=== PATIENT | male | born 1955 | race Caucasian/White ===

== ENCOUNTER 2021-05-20 19:10 | Emergency (ER) | payer OTHER ==
[~2021-05-20] VITALS: Ht 177.8 cm; Wt 113.4 kg
[~2021-05-20 19:10] MED LIST: ALBU90OI INH; ALEN70 PO; Albuterol2.5 MG/0.5 INH; Aspirin EC81 MG; Aspirin EC81 MG PO; CALCIUM 500 +1 EAC3 PO; CEPH500 PO; Crestor40 MG PO; FURO40; GABA800 PO; Glucose4 GM PO; HYDACE10B PO; HYDACE5 PO; HYDGUAL120 PO; Hydrochlorothia25 MG PO; IBUP600 PO; INSULANPEN SC; LEVEMIR FL100 UNIT/1 SC; LISI20 PO; METF500C PO; METO25; METO25ER PO; OXYACE5T PO; POTCHL10ER; PRED20 PO; PROM25 PO; ROSUVASTATIN CA40 MG PO; SKIN TREATMENT225 GM TP; SULTRIDS PO; TAMS.4ER PO; TRULICITY1.5 MG/0.5; Ventolin/Prove6.7 GM INH; XARELTO20 MG PO
[2021-05-20 19:44] LABS: BASOPHILS ABSOLUTE AUTO 0.09 K/mm3 (0.00-0.23); BASOPHILS PERCENT AUTO 1 % (0-2); EOSINOPHILS PERCENT AUTO 2 % (0-6); Hemoglobin 17.2 g/dL (13.5-17.5); IMMATURE GRAN ABSOLUTE AUTO 0.04 K/mm3 (0.00-0.10); IMMATURE GRAN PERCENT AUTO 0 % (0-1); LYMPHOCYTES ABSOLUTE AUTO 2.29 K/mm3 (0.84-5.20); LYMPHOCYTES PERCENT AUTO 25 % (21-46); MONOCYTES ABSOLUTE AUTO 0.97 K/mm3 (0.16-1.47); MONOCYTES PERCENT AUTO 11 % (4-13); Mean Corpuscular HGB 31.1 pg (26.0-34.0); Mean Corpuscular HGB Conc 32.5 g/dL (31.5-36.5); Mean Corpuscular Volume 96 fL (80-100); Mean Platelet Volume 10.3 fL (9.1-12.4); NEUTROPHILS ABSOLUTE AUTO 5.62 K/mm3 (1.96-9.15); NEUTROPHILS PERCENT AUTO 61 % (41-73); Platelet Count 236 K/mm3 (150-400); RDW Coefficient Variation 14.3 % (11.7-14.2); RDW Standard Deviation 50.8 fL (35.1-46.3); Red Blood Cell Count 5.53 M/mm3 (4.30-5.90); White Blood Cell Count 9.21 K/mm3 (4.00-11.30)
[2021-05-20 20:09] LABS: Alanine Aminotransfer (ALT/SGP 27 U/L (12-78); Albumin, Blood 3.3 g/dL (3.4-5.0); Albumin/Globulin Ratio 0.8 (0.8-1.8); Alk Phos 59 U/L (50-136); Anion Gap 3 mmol/L (6-16); Aspartate Aminotrans (AST/SGOT 20 U/L (12-37); Bilirubin, Total 0.2 mg/dL (0.1-1.0); Blood Urea Nitrogen 10 mg/dL (8-24); Bun/Creatinine Ratio 15.6 (12.0-20.0); CO2, Blood 31 mmol/L (21-32); Calcium, Blood 9.2 mg/dL (8.5-10.1); Chloride, Blood 108 mmol/L (98-108); Creatinine, Blood 0.64 mg/dL (0.60-1.20); Globulin, Blood 4.1 g/dL (2.2-4.0); Glomerular Filtration Rate >60 (60-); Glucose, Blood 108 mg/dL (70-99); Potassium, Blood 4.6 mmol/L (3.5-5.5); Sodium, Blood 142 mmol/L (136-145); Total Protein, Blood 7.4 g/dL (6.4-8.2)
[2021-05-20] MEDS ORDERED: Prednisone20 MG PO (20:49)
[2021-05-20] MEDS ORDERED: DOXY100 PO (20:49)
== END 2021-05-20 21:08 | disposition home or self-care (01) ==
LOC: ER 19:10
PROVIDERS: Emergency Medicine
DX: J44.9 Chronic obstructive pulmonary disease, unspecified (principal); I10 Essential (primary) hypertension; E11.9 Type 2 diabetes mellitus without complications; F17.200 Nicotine dependence, unspecified, uncomplicated; Z79.899 Other long term (current) drug therapy
CPT/HCPCS: 36415; 71045; 80053; 83880; 84484; 85025; 93005; 93010; 99284-25; A9270; J7512

== ENCOUNTER 2023-09-13 13:03 | Inpatient (IN) | payer OTHER ==
[~2023-09-13] VITALS: Ht 182.9 cm; Wt 90.7 kg
[~2023-09-13 13:03] MED LIST changes: +CELE200 PO; +DOCU100 PO; +DOXY100 PO; +METO50ER PO; +ONDA4 PO; +OXYC5 PO; +POTA10T PO; +Prednisone20 MG PO; +ROSUVASTATIN CA10 MG PO; +SYNJARDY XR 121 EAC1 PO; +TAMS.4ER; +THERA-D2000 UNIT PO; +TORSE20 PO; +TRAM50 PO
[2023-09-13] MEDS ORDERED: OLANZapine 5 MG Tab PO ONE (15:15)
[2023-09-13] MEDS ORDERED: HYDROcodone 10-APAP 325 TAB PO PRN (16:00)
[2023-09-13] MEDS ORDERED: Haloperidol Lactate Inj. 5 MG/ML Injection IM PRN (16:00)
[2023-09-13] MEDS ORDERED: Insulin Human Lispro 100 Units/ML 3ML Syringe SC SCH (16:30)
[2023-09-13] MEDS ORDERED: Gabapentin 400 MG Cap PO SCH (18:00)
[2023-09-13 18:03] LABS: BASOPHILS ABSOLUTE AUTO 0.08 K/mm3 (0.00-0.23); BASOPHILS PERCENT AUTO 1 % (0-2); EOSINOPHILS ABSOLUTE AUTO 0.18 K/mm3 (0.00-0.68); EOSINOPHILS PERCENT AUTO 2 % (0-6); Hematocrit 51.9 % (37.0-53.0); Hemoglobin 17.2 g/dL (13.5-17.5); IMMATURE GRAN ABSOLUTE AUTO 0.01 K/mm3 (0.00-0.10); IMMATURE GRAN PERCENT AUTO 0 % (0-1); LYMPHOCYTES PERCENT AUTO 30 % (21-46); MONOCYTES ABSOLUTE AUTO 0.93 K/mm3 (0.16-1.47); MONOCYTES PERCENT AUTO 10 % (4-13); Mean Corpuscular HGB 31.3 pg (26.0-34.0); Mean Corpuscular HGB Conc 33.1 g/dL (31.5-36.5); Mean Corpuscular Volume 94 fL (80-100); Mean Platelet Volume 9.6 fL (9.1-12.4); NEUTROPHILS ABSOLUTE AUTO 5.38 K/mm3 (1.96-9.15); NEUTROPHILS PERCENT AUTO 57 % (41-73); Platelet Count 293 K/mm3 (150-400); RDW Coefficient Variation 12.5 % (11.7-14.2); RDW Standard Deviation 43.9 fL (35.1-46.3); White Blood Cell Count 9.38 K/mm3 (4.00-11.30)
[2023-09-13] MEDS ORDERED: QUEtiapine Fumarate 25 MG Tab PO SCH (21:00)
[2023-09-13] MEDS ORDERED: TraZODone HCl 100 MG Tab PO SCH (21:00)
[2023-09-13] MEDS ORDERED: Insulin Glargine-Yfgn 100 Unit/mL 3 ML SYR SC SCH (21:00)
[2023-09-13 21:30] VITALS: BP 125/56
--- NOTE | 2023-09-13 23:00 | NUR ---
PRIMARY NURSE [facility]-THIS RN TO ASSUME PATIENT CARE.
--- NOTE | 2023-09-13 23:08 | NUR ---
PATIENT ARRIVED AT 1999 VIA W/C FROM ER.ALERT, ANGRY AND LISTENING TO US BUT SHOUTING LOUD, HAS A CANE AND DID NOT TRY TO STRICK US. SITTER WITH HIM. HE DID NOT WANT TO GET IN BED, WE GOT A RECLINER AND IT IS NOTED HIS RIGHT TOE NAIL IS BLOODY. WILL NOT LET ME PUT A DRESSING ON. ASKING FOR HIS MED AND BELITTLING THE HOSPITAL. FOR NOT HAVING A COUNSELOR IN THE ER TONIGHT. HE IS ON 2 MD HOLD. HIS CIGARETTES, HYDRAULIC BILLET MAKER, WALLET AND MEDS ALL LOCKED IN PATIENT BIN. HE LET US DO HIS VITALS AND CBG. HE SAID HE WANTS HIS MEDS. LET HIM KNOW WE WOULD NOT GIVE HIS SCHEDULED INSULIN SINCE HE IS NOT EATING. ROOM SET UP FOR SI PATIENT, SHORT CALL LIGHT CORD IN PLACE. HE DID LET US OUT A DRESSING ON HIS RIGHT TOE. SITTER JUST OUTSIDE ROOM ABLE TO SEE HIS FACE AND HANDS.
--- NOTE | 2023-09-14 05:01 | NUR ---
SHIFT SUMMARY. PATIENT IS A&O X4 WITH CONFUSION. PATIENT AMBULATING INDEPENDENTLY IN BEDROOM WITH CANE . PATIENT HAS 1:1 SITTER R/T HIGH SI RISK. PATIENTS ROOM HAS PAPER LINERS IN WASTE BINS, SHORT CALL LIGHT, PATIENT IN VIEW OF SITTER. PATIENT HAS OWN CPAP-PATIENT WEARS AT NIGHT WHEN SLEEPING. PATIENT REFUSED PARTS OF HIS ASSESSMENT. PATIENT RESTING IN RECLINER WITH RESPIRATIONS EQUAL AND UNLABORED. PATIENT ABLE TO MAKE HIS NEEDS KNOWN. CALL LIGHT ACCESSABLE TO PATIENT. NO S/S OF DISTRESS NOTED. CARE IS ONGOING.
[2023-09-14 05:52] VITALS: BP 141/77
[2023-09-14 07:12] VITALS: BP 106/66
[2023-09-14] MEDS ORDERED: DULoxetine HCL 60 MG Capsule DR PO SCH (09:00)
[2023-09-14] MEDS ORDERED: Enoxaparin 40 MG/0.4 ML SYR SC SCH (09:00)
[2023-09-14 09:05] LABS: Albumin, Blood 3.3 g/dL (3.4-5.0); Albumin/Globulin Ratio 0.9 (0.8-1.8); Bilirubin, Total 0.5 mg/dL (0.1-1.0); Bun/Creatinine Ratio 15.2 (12.0-20.0); Creatinine, Blood 0.66 mg/dL (0.60-1.20); Globulin, Blood 3.7 g/dL (2.2-4.0); Potassium, Blood 4.1 mmol/L (3.5-5.5)
[2023-09-14] MEDS ORDERED: Norco 10-325 T1 EACH PO (10:47)
[2023-09-14] MEDS ORDERED: TRAZ150T57 PO (10:48)
[2023-09-14] MEDS ORDERED: OLANZapine 10 MG Vial IM PRN (11:55)
[2023-09-14] MEDS ORDERED: QUEtiapine Fumarate 25 MG Tab PO PRN (11:55)
--- NOTE | 2023-09-14 13:30 | NUR ---
PT HAS HAD NO URINE OUTPUT THIS SHIFT. PT STATES HE DOES NOT HAVE THE URGE OR FEEL LIKE HE NEEDS TO URINATE. PT DECLINED TO GET UP AND ATTEMPT TO URINATE. PT VERBALLY AGREED TO ALLOW TO BE BLADDER SCANNED. BLADDER SCAN REVEALED ZERO MLS. PT EDUCATED ON IMPORTANCE OF DRINKING WATER AND STAYING HYDRATED. PT V/U. PT HAS WATER AT BEDSIDE.
[2023-09-14 15:11] VITALS: BP 105/66
[2023-09-14] MEDS ORDERED: BASAGLAR K100 UNIT/1 SC (16:57)
[2023-09-14] MEDS ORDERED: OMEP20ER PO (16:58)
[2023-09-14] MEDS ORDERED: OZEMPIC1 MG/0.72 SC (16:59)
[2023-09-14] MEDS ORDERED: TAMS.4ER PO (16:59)
[2023-09-14] MEDS ORDERED: MIRALAX17 GM PO (17:00)
[2023-09-14] MEDS ORDERED: ALBU90OI INH (17:00)
[2023-09-14] MEDS ORDERED: TIOT18 INH (17:01)
[2023-09-14] MEDS ORDERED: DULO30 PO (17:01)
[2023-09-14] MEDS ORDERED: NS 1,000 ML IV SCH (17:50)
--- NOTE | 2023-09-14 18:12 | NUR ---
SHIFT SUMMARY: PT IS A/O X 3, STANDBY ASSIST. PT WAS REFUSING TO EAT OR DRINK MEALS TODAY. PT REPORTED IT WAS HIS PLAN TO STARVE TO . PT HAD POOR ORAL INTAKE OF FLUIDS ALL DAY WITH VERY LITTLE URINE OUTPUT. PT DID NOT URINATE IN HAT SO WAS UNABLE TO MEASURE VOID BUT PLANT MANAGER REPORTED IT DARK YELLOW WHEN HE DID URINATE IN THE EVENING. ONCE PT SPOKE TO PSYCH RADIOTELEPHONE OPERATOR PT WAS MORE AGREEABLE TO EATING. PT DID REQUEST A DIABETIC DIET WITH TEXTURE MODIFICATION BECAUSE HE DOES NOT HAVE ANY TEETH. DIET CHANGED TO HIS PREFERENCES. [facility] LIST AND WAS UPDATED IN HOME MEDICATIONS. DR. BOYER NOTIFIED OF MEDICATIONS NOT ON MAR AND HE GAVE ORDERS FOR METOPROLOL AND XARELTO TO BE ADDED PER HOME DOSE. ALSO DISCUSSED CONCERNS OF S/S OF DEHYDRATION WITH DR. BOYER AND HE GAVE ORDER FOR NS AT 100 MLS PER HOUR. PT HAS NO IV ACCESS. DISCUSSED CONCERNS WITH PT AND HE AGREED TO ALLOW AN IV TO BE STARTED FOR IV FLUIDS TO BE GIVEN. ATTEMPTED TWO IV STARTS AND WAS UNSUCCESSFUL. WILL NOTIFY MEDICAL I D SALES OF CONCERNS.
[2023-09-14 20:30] VITALS: BP 116/68
[2023-09-14] MEDS ORDERED: Ketorolac Tromethamine 15mg Vial IV PRN (20:30)
[2023-09-14] MEDS ORDERED: Metoprolol Succinate 50 MG TABCR PO SCH (21:00)
[2023-09-14] MEDS ORDERED: QUEtiapine Fumarate 50 MG TAB PO SCH (21:00)
[2023-09-14] MEDS ORDERED: Docusate Sodium 100 MG Cap PO SCH (21:00)
[2023-09-14] MEDS ORDERED: Acetaminophen650 M1 PO (23:20)
[2023-09-14] MEDS ORDERED: ALEVE ARTHRITI100 GM TOP (23:21)
[2023-09-14] MEDS ORDERED: PHARBEDRYL50 M2 PO (23:22)
[2023-09-14] MEDS ORDERED: GLUCOSE PO (23:27)
[2023-09-14] MEDS ORDERED: MUPIROCIN2210 TOP (23:28)
[2023-09-14] MEDS ORDERED: NARCAN4 M1 (23:30)
[2023-09-14] MEDS ORDERED: TRIDERM28.4 GM TOP (23:33)
[2023-09-14] MEDS ORDERED: Chantix1 MG PO (23:34)
--- NOTE | 2023-09-15 00:10 | NUR ---
HOSPITALIST CONTACTED. PATIENT C/O INSOMNIA. PATIENT REQUEST FOR HIS HOME DOSE OF TRAZODONE. HOSPITALIST DR. FERNANDEZ CONTACTED AND NOTIFIED OF PATIENTS REQUEST. DR. FERNANDEZ ORDERED PATIENT TO START HOME DOSE OF TRAZODONE FROM [facility] REC.
[2023-09-15] MEDS ORDERED: TraZODone HCl 50 MG Tab PO SCH (00:25)
--- NOTE | 2023-09-15 01:15 | NUR ---
HOSPITALIST CONTACTED. DR. FERNANDEZ CONTACTED D/T PATIENT REQUESTING FOR TRAZODONE THAT HE TAKES AT HOME FOR INSOMNIA. DR. FERNANDEZ ORDERED FOR HOME DOSE TO BE STARTED NOW.
--- NOTE | 2023-09-15 04:29 | NUR ---
PATIENT ANXIOUS. THIS RN WENT INTO SEE PATIENT WITH MEDICATIONS FOR ANXIETY-PATIENT HITTING HEAD AND WANTING TO "STOP THE VOICES IN HIS HEAD THAT KEEP TALKING". PATIENT STATES "I DONT SLEEP FOR DAYS AT HOME BECAUSE OF THE VOICES". PATIENT TREATED WITH MEDICATION PER EMAR.
[2023-09-15 05:24] VITALS: BP 105/73
--- NOTE | 2023-09-15 05:29 | NUR ---
SHIFT SUMMARY. PATIENT IS A&OX3-4 WITH CONFUSION. PATIENT IS IRRITABLE AND LIABLE. PATIENT REPORTS THAT HE HEARS VOICES IN HIS HEAD THAT KEEP HIM UP AND WONT STOP TALKING-SEE PREVIOUS NOTE. PATIENT IS [place]. PATIENT UPSET ABOUT HOME MEDICATIONS-MED REC COMPLETED BY CHARGE NURSE QUINTON FROM [facility]-PATIENT STATES "I DONT WHAT MEDICATIONS I TAKE, THEY ARE ALL IN MY BOX AND I TAKE THEM". PATIENT DID NOT SLEEP WELL THIS SHIFT. PATIENT HAS 1:1 SITTER FOR HIGH RISK SI. PATIENT UPSET WITH SHORT CALL LIGHT CORD AND STATES "IM NOT GOING TO HURT MYSELF TO " THIS RN ASKED "DO YOU HAVE A PLAN?" PATIENT STATES "YES, TO STARVE". IV PLACED THIS SHIFT IN LEFT FA-PATIENT TOLERATED WELL. PATIENT PREFERS TO SLEEP IN THE RECLINER. PATIENT DENIED FOR FULL SKIN ASSESSMENT TO BE COMPLETED. PATIENT WALKED IN WHITESIDE THIS SHIFT WITH TOOL CRIB MANAGER-PATIENT UNSTEADY AT TIMES. CALL LIGHT IN REACH. CARE IS ONGOING.
[2023-09-15 06:07] LABS: Source, Urine Voided
[2023-09-15 06:11] LABS: Appearance, Urine Hazy (Clear); Bilirubin, Urine Neg (Neg); Blood, Urine 1+ (Neg); Color, Urine Yellow (P-Yellow); Glucose Qualitative, Urine Neg (Neg); Ketones, Urine 1+ (Neg); Leukocyte Esterase, Urine 3+ (Neg); Nitrite, Urine Neg (Neg); Protein, Urine 1+ (Neg); Specific Gravity, Urine 1.025 (1.003-1.022); Urobilinogen, Urine NORM (Normal)
[2023-09-15 06:18] LABS: Mucus Heavy (0-Heavy)
[2023-09-15 06:21] LABS: Bacteria Many /hpf; Red Blood Cells, Urine 0-2 /hpf (0-2); Squamous Epithelial Cells Many /hpf (Few)
[2023-09-15] MEDS ORDERED: Rivaroxaban 10 MG Tab PO SCH (09:00)
[2023-09-15 15:20] VITALS: BP 100/54
--- NOTE | 2023-09-15 18:38 | NUR ---
SHIFT SUMMARY PATIENT ALERT AND INTERACTIVE. PATIENT COOPERATIVE WITH CARE. PATIENT ABLE TO AMBULATE IN THE WHITESIDE WITH PERSONAL CANE INDEPENDENTLY. PATIENT STATES THAT HE HAD A RECENT KNEE SURGERY ON L KNEE. PATIENT VERBALIZING FRUSTRATION WITH SON. PATIENT DOES NOT WANT PATIENT TO HAVE ANY INFORMATION RELATED TO THIS HOSPITALIZATION. PATIENT STATES THAT HE FEELS THAT HE IS A BURDEN TO HIS FAMILY AND THAT HE HAS BEEN LEFT TO FEND FOR HIMSELF. PATIENT STATES THAT HE DOES NOT LIKE SITTING IN HIS APARTMENT WITH NOTHING TO DO. PATIENT STATES THAT HE HAS AN APPOINTMENT IN [place] BUT DOES NOT HAVE REASONABLE TRANSPORTATION TO TAKE HIM THERE. PATIENT CONCERNED ABOUT FALL RISK IN APARTMENT ALONG WITH SAFETY RELATED TO COOKING. PATIENT AGREES THAT HE NEEDS SOME ASSISTANCE AND HAS LOOKED INTO FACILITIES LIKE [facility] BUT IS UNABLE TO AFFORD CARE.
[2023-09-15 20:27] VITALS: BP 120/73
[2023-09-16 03:49] VITALS: BP 119/70
--- NOTE | 2023-09-16 04:32 | NUR ---
SHIFT SUMMARY ALERT AND ORIENTATED X3. PATIENT WAS COOPERATIVE WITH TREATMENT CARE. WALKED WITH STAFF IN THE WHITESIDE. REQESTED TURKEY AND CHEESE SANDWICH AND SPENT MOST OF HIS TIME IN RECLINER WATCHING TV. REQUESTED OXY FOR 8 PAIN LEVEL. AFTER HS MEDICATION, HE REQUESTED HIS PRN SEROQUEL. HE SPOKE TO NURSE DURING ASSESSMENT ABOUT GROWING UP IN [place]. WHILE COMPLETING THE SUICIDE RISK AND MITIGATION ASESSMENT HE BECAME TEARFUL AND EXPRESSED FRUSTRATION ABOUT HIS KNEE AND NOT BEING ABLE TO STAND ON IT AND COOK FOR HIMSELF. HE WAS ABLE TO AMBULATE TO [facility]. HE APPEARED TO SLEEP THROUGH THE NIGHT WITHOUT ISSUES.
[2023-09-16 07:04] VITALS: BP 111/74
[2023-09-16] MEDS ORDERED: Insulin Glargine-Yfgn 100 Unit/mL 3 ML SYR SC SCH (13:00)
[2023-09-16 15:35] VITALS: BP 114/90
--- NOTE | 2023-09-16 16:37 | NUR ---
SHIFT SUMMARY PT AOX3, ALERT THIS EVENING BUT LETHARGIC THIS AM. CPAP IN USE WHENEVER SLEEPING. MEDICATED FOR PAIN PER THE EMAR. VISITOR, BROTHER, SHOWED UP TODAY TO GO RETRIEVE HIS PERSONAL BELONGINGS. PT DOES NOT CALL BUT 1:1 SITTER PRESENT IN THE ROOM FOR SUICIDE PRECAUTIONS. PT HAS REQUESTED SNACKS AND IS EATING FAIRLY WELL TODAY. REPOSITIONED IN THE CHAIR THROUGHOUT THE SHIFT. CALL LIGHT WITHIN REACH, BED LOCKED AND IN THE LOWEST POSITION. PLAN IS FOR THE PT TO TRANSFER TO A PSYCHIATRIC FACILITY TOMORROW. WILL REPORT TO ONCOMING NURSE.
[2023-09-16 19:55] VITALS: BP 104/62
--- NOTE | 2023-09-16 20:00 | NUR ---
WHEN QUESTIONED ABOUT SUICIDAL THOUGHTS, PT DENIES HAVING ANY AT THIS TIME, BUT LOOKS AWAY WHEN ANSWERING THE QUESTION. PT ALSO DENIES HAVING MADE ANY PLANS TO COMMIT SUICIDE. PT DID NOT MAKE EYE CONTACT DURING QUESTIONS ABOUT SUICIDAL THOUGHTS OR PLANS AND MOSTLY RESPONDED BY SHAKING HIS HEAD. DURING THE PHYSICAL ASSESSMENT, PT DID MAKE EYE CONTACT AND ANSWER VERBALLY WELL ELABORATE DESCRIBING SYMPTOMS. WHEN DISCUSSING TRANSFER TO THE INPATIENT PSYCH FACILITY TOMORROW, PT STATES THAT HE IS HOPEFUL HE WILL RECEIVE THE HELP HE NEEDS.
[2023-09-16] MEDS ORDERED: QUEtiapine Fumarate 50 MG TAB PO SCH (21:00)
[2023-09-17 04:50] VITALS: BP 103/68
--- NOTE | 2023-09-17 05:03 | NUR ---
SHIFT SUMMARY: [facility] IS A&OX4. VSS, NO ACUTE EVENTS OVERNIGHT. HE CHOSE TO SIT UP IN THE RECLINER DURING THE NIGHT. HE HAS RESTED WITH HIS EYES CLOSED INTERMITTENTLY. 1:1 SITTER AT BEDSIDE. HE IS A STANDBY ASSIST IN THE ROOM AND HALLWAY, DENIES ANY DIFFICULTY WITH ELIMINATION. HE IS TOLERATING PO INTAKE WELL AND USES THE CALL LIGHT APPROPRIATELY. PER REPORT, PT IS SCHEDULED TO TRANSPORT TO [facility] TODAY AT 1000. WILL GIVE REPORT TO DAY SHIFT RN.
[2023-09-17 07:58] VITALS: BP 103/68
[2023-09-17 08:51] VITALS: BP 98/60
--- NOTE | 2023-09-17 08:57 | NUR ---
PATIENT STATES THAT HE HAS " NOT YET" THOUGHT ABOUT KILLING HIMSELF TODAY. THE PATIENT STATES THAT "I KNOW HOW IM GOING TO DO IT" WHEN ASKED IF HE HAS STARTED TO DO ANYTHING IN PREPARATION TO TAKE HIS OWN LIFE. 1:! SITTER AT THE BEDSIDE. WILL CONTINUE TO MONITOR
[2023-09-17] MEDS ORDERED: Polyethylene Glycol 3350 17 gm PO PRN (14:05)
[2023-09-17 15:50] VITALS: BP 117/77
[2023-09-17 19:58] VITALS: BP 111/72
[2023-09-17] MEDS ORDERED: Docusate Sodium/Senna 1 Tab PO SCH (21:00)
[2023-09-17] MEDS ORDERED: Varenicline Tartrate 1 MG Tablet PO SCH (22:20)
[2023-09-18 04:59] VITALS: BP 118/63
--- NOTE | 2023-09-18 06:23 | NUR ---
Shift Summary Pt did not transfer yesterday d/t postitive covid test. He was asymptomatic t/o the night. He does c/o of chronic back pain and L knee pain. He slept on and off t/o the night, sometimes wearing his CPAP which has no O2 bleed in. Pt on Cont. O2 monitor as ordered, no desaturation events. No acute events. Pt is frustrated he cannot walk the halls or be transfered with covid. No threats of hurting himself this shift, pt states he does not plan to hurt himself while he is here.
[2023-09-18 07:36] VITALS: BP 101/63
--- NOTE | 2023-09-18 09:34 | NUR ---
PATIENT SAYS "GIVE ME A SYSRINGE WITH MEDICINE IN IT AND I WILL PUSH IT IN ME AND JUST " THIS RN EXPLAINS THAT THIS IS NOT POSSIBLE. PATIENT SAYS "THEN I WILL FIGURE OUT A DIFFERENT WAY" SITTER PRESENT OUTSIDE OF ROOM. 1:1
--- NOTE | 2023-09-18 15:55 | NUR ---
SHIFT SUMMARY; PATEINT REMAINS WITH A 1;1 SITTER ON SI WATCH. HE EXCPRESSES THAT HE "WANTS TO KILL HIMSELF" AND "HAS A PLAN" BUT NOT GOING TO TELL ANYONE. HIS GRANDAUGHTER COMES TO ROOM WITH HER SPOUSE AND VERBALIZED THAT PATIENT HAS DONE THIS FOR LONG SHE CAN REMEMBER WHENEVER THINGS DON'T GO HIS WAY. HE IS UPSET AT THIS TIME BECAUSE HIS SON IS MOVING TO ANOTHER STATE AND WILL BE OUT OF AREA FOR AN EXTENDED PERIOD OF TIME.
[2023-09-18 15:56] VITALS: BP 109/59
[2023-09-18 19:23] VITALS: BP 132/73
[2023-09-19 03:40] VITALS: BP 122/74
--- NOTE | 2023-09-19 04:46 | NUR ---
NOC SHIFT SUMMARY PTS 1:1 SITTER NOTICED THAT PT HAD A BETTER SLEEP TONIGHT THAN HE HAS FOR THE LAST 3 NIGHTS, POSSIBLY DUE TO THE INCREASED DOSE OF SEROQUEL. OF NOTE, WITH THE INCREASED DOSE OF SEROQUEL PT IS A LITTLE MORE UNSTEADY ON TRIPS TO THE BATHROOM AND REQUIRES CLINICAL STAFF TO ASSIST HIM THERE WITH HIS CANE. PT ADMITS HE STILL HAS THOUGHTS OF SUICIDE SO SI PRECAUTIONS AND 1:1 SITTER ARE TO REMAIN IN PLACE.
[2023-09-19 07:24] VITALS: BP 132/83
--- NOTE | 2023-09-19 10:00 | NUR ---
PATIENT IN A DEEP SLEEP MOST OF AM. ONLY GETTING UP TO URINATE AT 10 AM. BREAKFAST IS HEATED UP AND PATIENT EATING AT 1000 AM. HAS PLEASANT AFFECT. STILL INSISTING HE WANTS TO KILL HIMSELF. NOW SAYS HE WILL STOP EATING OR DRINKING AND WILL SOON.
[2023-09-19 16:32] VITALS: BP 114/75
--- NOTE | 2023-09-19 19:11 | NUR ---
SHIFT SUMMARY; MARCELOEINT RECEIVED NORCO 1O/325 X 2 TODAY FOR SEVERE SHOULDER AND LEFT KNEE PAIN. HIS CHEM BG'S ONLY REQUIRED COVERAGE OF 1 UNIT AT BREAKFAST AND ONE AT DINNER. VITAL SIGNS ARE STABLE AND HE IS NOT FEBRILE. HE STILL VERBALIZED SUICIDAL IDEATION AND NOW SAYS HE WILL STOP EATING OR DRINKING WHEN HE DECIDES HE WANTS TO . HE HAS A 1:1 SITTER AND REMAINS ON COVID ISOLATION.
[2023-09-19 20:00] VITALS: BP 91/60
[2023-09-19 21:40] VITALS: BP 104/64
--- NOTE | 2023-09-20 04:31 | NUR ---
NOC SHIFT SUMMARY PT APPEARED TO SLEEP WELL IN BETWEEN TRIPS TO THE BATHROOM. 1:[address] FOR SI PRECAUTIONS. PT IS STILL FEELING SUICIDAL. VSS. COVID PRECAUTIONS AND FALL PRECAUTIONS IN PLACE.
[2023-09-20 05:37] VITALS: BP 131/80
[2023-09-20 07:08] VITALS: BP 111/74
[2023-09-20] MEDS ORDERED: Magnesium Hydroxide Conc 10 ML UDC PO PRN (10:35)
--- NOTE | 2023-09-20 11:39 | NUR ---
STATES NOT EATING, PLAN.
[2023-09-20 15:37] VITALS: BP 99/70
--- NOTE | 2023-09-20 17:56 | NUR ---
PT SOME IRRITABLE THIS DAY. MOSTLY AGREEABLE. DID GIVE BOWEL CARE MEDS TODAY. STATES IS STILL SI TODAY. SITTER CONTINUES. MED FOR PAIN X2 TODAY. HAS BEEN UP IN CHAIR WATCHING NEWS MUCH OF DAY. NO NEW CONCERNS NOTED. BED IN LOWE POSITION, CALL LITE IN REACH, CALLS APPROP
--- NOTE | 2023-09-20 18:45 | NUR ---
PT REQUESTED ORDER PIZZA OUT. PKT STATES CAN EAT EVEN WITHOUT TEETH. STATES DOES NOT HAVE DENTURES AND EATS STEAKS AND WHAT EVER WANTS. CALLED DR TO UPDATE FOR PT REQUEST. DR APPROVED ADA DIET. AND OKAY WITH PT ORDER OUT WHAT WANTED.
[2023-09-20 20:03] VITALS: BP 97/64
[2023-09-20] MEDS ORDERED: QUEtiapine Fumarate 200 MG Tab PO SCH (21:00)
[2023-09-21 03:46] VITALS: BP 106/76
--- NOTE | 2023-09-21 05:02 | NUR ---
SHIFT SUMMARY ADMITTED FOR TOXIC METABOLIC ENCEPHALOPATHY. DNR CODE. PLAN IS FOR INPATIENT PSYCH PLACEMENT. HOWEVER THE PATIENT TESTED POSITIVE FOR COVID SO THE PLACEMENT IS DELAYED UNTIL ISOLATION IS COMPLETED. HIGH SI, SITTER IN PLACE. ACHS CBG'S. STANDBY ASSIST W/CANE. ON RA. AUDITORY HALLUCINATIONS REPORTED. LABILE MOODS. PARANOIA NOTED. HE IS A [facility]. I AM NOT FINDING A LOT OF HISTORY IN THIS PATIENT'S CHARTS.
[2023-09-21 07:08] VITALS: BP 97/64
[2023-09-21 15:13] VITALS: BP 114/73
--- NOTE | 2023-09-21 17:08 | NUR ---
PT AO AND HAS BEEN COOPERATIVE OF CARE. PT CONINTUES TO BE ABLE TO AMBULATE IN ROOM WITH CANE. SITTER MONITORING DUE TO SI IDEATION. PT ABLE TO MAKE NEEDS KNOWN. TREATED FOR PAIN PER EMAR. CALL LIGHT WITHIN REACH WILL CONTINUE TO MONITOR.
[2023-09-21 20:21] VITALS: BP 107/55
--- NOTE | 2023-09-22 06:00 | NUR ---
SHIFT SUMMARY 68 YR M ADMITTED ON 09/13/23. DNR. PT STATED TO 1:1 SITTER THAT HE WAS HEARING VOICES THAT MADE HIM THINK ABOUT KILLING HIMSELF, ALTHOUGH HE STATED THAT HE HAD NO PLAN TO DO SO. PT STATED TO NURSE THAT HE WAS TIRED AND WANTED TO SLEEP BUT EVERYTIME HE TRIED HE WAS HEARING THE VOICES IN HIS HEAD TELL HIM BAD THINGS. PT WAS GIVEN AN IM OF PRN ZYPREXA AND PRN SEROQUEL AND WAS ABLE TO FALL ASLEEP SHORTLY AFTER AND HAS SLEPT FOR THE REST OF SHIFT.
[2023-09-22 07:22] VITALS: BP 108/71
[2023-09-22] MEDS ORDERED: Insulin Glargine-Yfgn 100 Unit/mL 3 ML SYR SC SCH (08:00)
[2023-09-22 16:18] VITALS: BP 114/77
--- NOTE | 2023-09-22 17:04 | NUR ---
NO ACUTE CHANGES AT THIS TIME. PT CONTINUES TO BE AOX4 AND ABLE TO WALK WITH CANE INDEPENDENTLY. PT WILL REQUEST WHEN HE NEEDS THINGS AND HAS TAKEN MEDS WELL. PT WAS SEEN TALKING TO THINGS AND STATES HE IS HEARING VOICES. WILL WAVE AT THE AIR AT TIMES. CALL LIGHT WITHIN REACH WILL CONTINUE TO MONITOR.
[2023-09-22 19:21] VITALS: BP 107/73
--- NOTE | 2023-09-23 04:50 | NUR ---
SHIFT SUMMARY 68 YR M ADMITTED ON 09/13/23. DNR. NO ACUTE CHANGES THIS SHIFT. PT HAS BEEN ANXIOUS AND REQUESTED AN INJECTION OF ZYPREXA AT APPROX 2230. IT WORKED WELL THE NIGHT BEFORE AND PT WAS ABLE TO SLEEP BUT THE ZYPREXA DID NOT APPEAR TO OFFER MUCH RELEIF THIS SHIFT. PT WAS AWAKE FOR MOST OF THIS SHIFT AND INSISTED ON GETTING UP TO THE BATHROOM TO HIMSELF, BECOMING AGGITATED AT HIS SITTER WHEN SHE OFFERED HELP. AT ONE POINT HE NEARLY FELL AND FROM THAT POINT FORWARD THIS NURSE INSISTED HE USE A FWW W/ ASSISTANCE. THE PT WAS RESISTANT TO THIS AND EXPRESSED TO STAFF THAT HE WAS NOT HAPPY ABOUT IT. HE WAS GIVEN EDUCATION ON FALLS MULTIPLE TIMES BUT HE INSISTED THAT HE WAS FINE WHEN HE WAS ACTUALLY UNSTEADY ON HIS FEET AND LOST HIS BALANCE A COUPLE OF TIMES. HE WILL FOLLOW INSTRUCTION BUT IT TAKES ALOT OF COAXING.
[2023-09-23 05:07] VITALS: BP 105/73
[2023-09-23 07:26] VITALS: BP 95/65
[2023-09-23 16:57] VITALS: BP 122/71
--- NOTE | 2023-09-23 18:12 | NUR ---
SHIFT SUMMARY: PT A&O X4. COOPERATIVE WITH CARE THIS SHIFT. NO ACUTE CHANGES. 1:1 SITTER REMAINS WITH PT. PAIN PILL PROVIDED ONCE THIS SHIFT FOR 09/14 NECK AND BACK PAIN. PT AMBULATING TO BATHROOM WITH ONE PERSON ASSIST USING FWW. PT WILL BE ABLE TO TRANSFER TO [facility] IN [place] ON OR AFTER 09/27/23 POST 10 DAY COVID POSITIVE. CALL LIGHT IN REACH. UP IN RECLINER FOR DINNER.
[2023-09-23 20:48] VITALS: BP 92/58
[2023-09-24 03:01] VITALS: BP 112/76
[2023-09-24 07:39] VITALS: BP 103/73
[2023-09-24 15:00] VITALS: BP 104/54
--- NOTE | 2023-09-24 17:37 | NUR ---
Entire hospital system down from start of shift til late afternoon. Manually documenting throughout shift. start of shift am vitals, and blood sugars 140 rn aware. Betsy, alerted us he wants loud announcement before entering. Fresh ice water provided, HAS AN S.I. SITTER, but just a watcher sitter. Breakfast tray setup, declined, ate only the bananna. Ambulates indep to restroom, does NOT use bed at all. Stays in recliner at all times if not in restroom. Seb replace stickers batteries at 9:30a. R.n admin meds. Request diet pepsi and pudding. Reclining in chair asleep at last check. Sound asleep. Telli d-c'd at 12 noon as well and pre lunch blood sugar. 178, rn aware. Lunch tray setup, ate only the dessert and requested snacks fom pantry instead. abelardo Marshall jello, diet pepsi, rn aware. room cleanup excess linens out. Will resume regular charting in [facility] as the system became restored at 4:30pm
--- NOTE | 2023-09-24 19:30 | NUR ---
report received verified. A/O X4 SITTER AT BEDSIDE. PT HAS FLAT AFFECT AND STILL HAS INTRUSIVE THOUGHTS, PT DID NOT WANT TO ELABORATE. IND IN ROOM AND CAN MAKE NEEDS KNOWN. SELF APPLIES CPAP AND HAS WARNED ME TO YELL FROM DOOR TO ANOUNCE MY PRESENCE BECAUSE HE IS VET AND DOESNT WAS HURT ANYONE BECAUSE HE WAS STARTLED. I THANKED PT.. OTHER THEN WAITING FOR ISO TO BE LIFTED PT IS WELL AND HAS HAD AN UNEVENTFUL DAY. WILL CONT TO MONITOR
[2023-09-24 19:35] VITALS: BP 102/58
[2023-09-25 04:24] VITALS: BP 101/62
--- NOTE | 2023-09-25 05:35 | NUR ---
SHIFT SUMMARY: ON SUICIDE PRECAUTIONS, 1:[address] ENDORSES THAT HE WANTS TO BUT DENIED PLAN. GETTING UP TO BR WITH FWW AND KEPT UNDER OBSERVATION. REQUESTED ZYPREXA IM PRIOR TO HS. ON ENHANCED ISOLATION AFTER TESTING POSITIVE FOR COVID, BUT HAS DOOR OPEN FOR 1:1 OBSERVATION. C/O CHRONIC PAIN; MEDICATED PER EMAR. SAT UP IN CHAIR ALL SHIFT, SLEPT INTERMITTENTLY. USING HIS OWN CPAP.
[2023-09-25 07:13] VITALS: BP 95/59
[2023-09-25 15:17] VITALS: BP 86/53
--- NOTE | 2023-09-25 19:26 | NUR ---
report received verified. pt doing much better today more talkative and expressed needs freely. pt spoke about hearing voices and that he had nothng to live for for the life he lived currently was not worth it. pt expressed hope in that we would send him to where he needed to go. pt took shower and amb in room. pt had had no issues today and was able to express needs
[2023-09-25 20:32] VITALS: BP 94/64
[2023-09-26 04:25] VITALS: BP 111/64
--- NOTE | 2023-09-26 05:28 | NUR ---
SHIFT SUMMARY: PT ENDORSED SI AND A/V HALLUCINATIONS DURING THE NIGHT; ZYPREXA IM GIVEN WHICH HELPED. MEDICATED FOR PAIN PER EMAR. ON ROOM AIR, USING OWN CPAP. HAD BM LAST EVENING. ASYMPTOMATIC COVID ISOLATION. STAYED IN RECLINER ALL NIGHT, SLEPT INTERMITTENTLY.
[2023-09-26 07:25] VITALS: BP 117/71
[2023-09-26 14:56] VITALS: BP 101/67
[2023-09-26 20:22] VITALS: BP 115/77
--- NOTE | 2023-09-26 21:53 | NUR ---
PATIENT CLAIMS TO HAVE SUICIDE PLAN, WOULD NOT REVEAL PLAN TO RN, WOULD PREFER TO TALK WITH MENTAL HEALTH DOCTOR ABOUT IT.
--- NOTE | 2023-09-27 05:32 | NUR ---
SHIFT SUMMARY: PATIENT FULLY ORIENTED, COOPERATIVE. ABLE TO SWALLOW PILLS WHOLE WITH THIN LIQUIDS IF THEY TAKE THE LIQUID FIRST. CPAP AT NIGHT. PREFERS SLEEPING AND LOUNGING IN CHAIR. HARD OF HEARING. ABLE TO WALK TO THE BATHROOM UNASSISTED. PATIENT STILL EXPRESSING SUICIDE PLAN, 1:1 SITTER CONTINUED.
[2023-09-27 06:02] VITALS: BP 102/68
[2023-09-27 07:05] VITALS: BP 93/68
[2023-09-27 14:08] VITALS: BP 111/87
--- NOTE | 2023-09-27 17:44 | NUR ---
SHIFT SUMMARY PT A&OX4, VSS, AMB IND W/ CANE, TOLERATING PO, VOIDING, AND PAIN MANAGED PER EMAR. PT VERBALIZED THAT HE HAS A PLAN TO END HIS LIFE IF HE WERE TO LEAVE THE HOSPITAL TO GO HOME. 1:1 SITTER REMAINS. PT COOPERATIVE W/ CARE. ISOLATION ENDS OF TOMORROW. NO OTHER ACUTE CHANGES THIS SHIFT. SI CALL LIGHT WITHIN REACH AND PT ABLE TO MAKE NEEDS KNOWN.
[2023-09-27 19:50] VITALS: BP 101/58
[2023-09-28 05:26] VITALS: BP 126/82
--- NOTE | 2023-09-28 06:28 | NUR ---
SHIFT SUMMARY: PATIENT FULLY ORIENTED, MUMBLED SPEECH. CPAP AT NIGHT. PREFERS SLEEPING IN CHAIR. ASKED FOR NORCO FOR PAIN. GABAPENTIN GIVEN REGULARLY. 1:1 SITTER MAINTAINED FOR SI.
[2023-09-28 07:10] VITALS: BP 112/57
[2023-09-28 16:50] VITALS: BP 119/69
--- NOTE | 2023-09-28 17:56 | NUR ---
SHIFT SUMMARY ISOLATION D/C TODAY. NO OTHER ACUTE CHANGES THIS SHIFT. CALL LIGHT WITHIN REACH AND PT ABLE TO MAKE NEEDS KNOWN.
[2023-09-28 19:38] VITALS: BP 104/87
--- NOTE | 2023-09-29 06:33 | NUR ---
SHIFT SUMMARY: PATIENT FULLY ORIENTED, COOPERATIVE. SLEPT WELL THROUGH NIGHT. NORCO GIVEN AT MIDNIGHT FOR GENERALIZED PAIN. 1:1 SITTER CONTINUED.
[2023-09-29 08:37] VITALS: BP 98/62
--- NOTE | 2023-09-29 16:02 | NUR ---
THIS NURSE CALLED [facility] AND SPOKE TO SIERRA. REPORT GIVEN.
[2023-09-29 16:09] VITALS: BP 105/77
[2023-09-29 16:31] VITALS: BP 105/77
--- NOTE | 2023-09-29 18:27 | NUR ---
SHIFT SUMMARY NO ACUTE CHANGES. PLAN FOR [facility] TRANSFER TOMORROW AT 0900. CALL LIGHT WITHIN REACH AND PT ABLE TO MAKE NEEDS KNOWN.
[2023-09-29 19:54] VITALS: BP 106/73
[2023-09-30 06:04] VITALS: BP 116/68
[2023-09-30] MEDS ORDERED: Metoprolol Succinate 50 MG TABCR PO SCH (09:00)
--- NOTE | 2023-09-30 10:41 | NUR ---
DISCHARGE NOTE: PATIENT NOTIFIED OF DISCHARGE TIME AT 0900. MEDS GIVEN AND BELONGINGS COLLECTED; PATIENT ASSISTED IN THIS. [facility] TRANSFER ARRIVED, TRANSPORTED PT VIA WHEELCHAIR, PATIENT BELONGINGS IN HANDS. PATIENT DISPLAYING NO SIGNS OR SYMPTOMS OF DISTRESS DURING DISCHARGE.
== END 2023-09-30 09:10 | disposition short-term general hospital (02) | DRG 885 ==
LOC: ER 13:03 → MEDS 13:04 → ENPENDDIS 09-17 10:05 → MEDS 09-23 22:31
PROVIDERS: Internal Medicine; ADMIT Family Medicine
PROC: 5A09357 Assistance with Respiratory Ventilation, Less than 24 Consecutive Hours, Continuous Positive Airway Pressure (ICD-10-PCS; principal; 2023-09-13)
DX: F33.3 Major depressive disorder, recurrent, severe with psychotic symptoms (principal); G92.8 Other toxic encephalopathy; U07.1 COVID-19; R45.851 Suicidal ideations; J44.1 Chronic obstructive pulmonary disease with (acute) exacerbation; G47.33 Obstructive sleep apnea (adult) (pediatric); Z66 Do not resuscitate; E11.9 Type 2 diabetes mellitus without complications; I10 Essential (primary) hypertension; I48.0 Paroxysmal atrial fibrillation; G89.29 Other chronic pain; H91.93 Unspecified hearing loss, bilateral; E66.9 Obesity, unspecified; F17.210 Nicotine dependence, cigarettes, uncomplicated; Z79.01 Long term (current) use of anticoagulants; Z68.27 Body mass index [BMI] 27.0-27.9, adult; Z79.1 Long term (current) use of non-steroidal anti-inflammatories (NSAID); Z79.891 Long term (current) use of opiate analgesic; Z79.84 Long term (current) use of oral hypoglycemic drugs
CPT/HCPCS: 36415; 71046; 80053; 81001; 82140; 82565; 82947; 83735; 84443; 85025; 87086; 87426; 87811; 93005; 93010; 94760; 94762; 97129; 97165; 99285-25; A9270; G0378; J1650; J1815; J1885; J7030

== ENCOUNTER 2023-11-18 18:09 | Emergency (ER) | payer OTHER ==
[~2023-11-18] VITALS: Ht 177.8 cm; Wt 104.3 kg
[~2023-11-18 18:09] MED LIST changes: +ALEVE ARTHRITI100 GM TOP; +Acetaminophen650 M1 PO; +BASAGLAR K100 UNIT/1 SC; +Chantix1 MG PO; +DULO30 PO; +GLUCOSE PO; +MIRALAX17 GM PO; +MUPIROCIN2210 TOP; +NARCAN4 M1; +Norco 10-325 T1 EACH PO; +OMEP20ER PO; +OZEMPIC1 MG/0.72 SC; +PHARBEDRYL50 M2 PO; +TIOT18 INH; +TRAZ150T57 PO; +TRIDERM28.4 GM TOP
[2023-11-18] MEDS ORDERED: NS 1,000 ML IV SCH (19:00)
[2023-11-18 19:14] LABS: BASOPHILS ABSOLUTE AUTO 0.06 K/mm3 (0.00-0.23); BASOPHILS PERCENT AUTO 1 % (0-2); EOSINOPHILS ABSOLUTE AUTO 0.19 K/mm3 (0.00-0.68); EOSINOPHILS PERCENT AUTO 3 % (0-6); Hematocrit 42.4 % (37.0-53.0); Hemoglobin 13.7 g/dL (13.5-17.5); IMMATURE GRAN ABSOLUTE AUTO 0.01 K/mm3 (0.00-0.10); IMMATURE GRAN PERCENT AUTO 0 % (0-1); LYMPHOCYTES PERCENT AUTO 39 % (21-46); MONOCYTES ABSOLUTE AUTO 0.68 K/mm3 (0.16-1.47); MONOCYTES PERCENT AUTO 11 % (4-13); Mean Corpuscular HGB 30.4 pg (26.0-34.0); Mean Corpuscular HGB Conc 32.3 g/dL (31.5-36.5); Mean Corpuscular Volume 94 fL (80-100); Mean Platelet Volume 10.3 fL (9.1-12.4); NEUTROPHILS ABSOLUTE AUTO 2.77 K/mm3 (1.96-9.15); NEUTROPHILS PERCENT AUTO 45 % (41-73); Platelet Count 302 K/mm3 (150-400); RDW Coefficient Variation 14.6 % (11.7-14.2); RDW Standard Deviation 50.1 fL (35.1-46.3); Red Blood Cell Count 4.51 M/mm3 (4.30-5.90); White Blood Cell Count 6.11 K/mm3 (4.00-11.30)
[2023-11-18 19:15] VITALS: BP 96/65
[2023-11-18 19:42] LABS: Albumin, Blood 3.2 g/dL (3.4-5.0); Albumin/Globulin Ratio 0.8 (0.8-1.8); Bilirubin, Total 0.3 mg/dL (0.1-1.0); Bun/Creatinine Ratio 11.1 (12.0-20.0); Calcium, Blood 9.1 mg/dL (8.5-10.1); Creatinine, Blood 0.72 mg/dL (0.60-1.20); Globulin, Blood 3.9 g/dL (2.2-4.0); Potassium, Blood 4.2 mmol/L (3.5-5.5); Thyroid Stimulating Hormone 1.61 uIU/mL (0.360-4.800); Total Protein, Blood 7.1 g/dL (6.4-8.2)
== END 2023-11-18 20:10 | disposition left against medical advice (07) ==
LOC: ER 18:09
PROVIDERS: Emergency Medicine
DX: I48.91 Unspecified atrial fibrillation (principal); I10 Essential (primary) hypertension; J44.9 Chronic obstructive pulmonary disease, unspecified; E11.9 Type 2 diabetes mellitus without complications; G47.33 Obstructive sleep apnea (adult) (pediatric); F17.200 Nicotine dependence, unspecified, uncomplicated; Z79.899 Other long term (current) drug therapy; Z79.4 Long term (current) use of insulin
CPT/HCPCS: 71045; 80053; 83880; 84443; 84484; 85025; 93005; 93010; 99284-25; J7030

== ENCOUNTER 2024-03-14 17:25 | Emergency (ER) | payer SELFPAY ==
[~2024-03-14] VITALS: Ht 177.8 cm; Wt 104.3 kg
[2024-03-14 17:51] VITALS: BP 130/80
== END 2024-03-14 19:17 | disposition left against medical advice (07) ==
LOC: ER 17:25
DX: R45.851 Suicidal ideations (principal); Z53.29 Procedure and treatment not carried out because of patient's decision for other reasons
CPT/HCPCS: 99283